=== PATIENT | male | born 1940 | race Caucasian/White ===

== ENCOUNTER 2017-12-01 08:50 | Day surgery (SDC) | payer OTHER ==
[2017-12-01] MEDS ORDERED: D5 LR 1000 ML 1,000 ML IV ONE (09:00)
[2017-12-01] MEDS: NORMODYNE INJ 20 MG VIAL ONE ×2 (09:30→09:35)
[2017-12-01] MEDS ORDERED: DIPRIVAN VIAL 10 ML ONE ×2 (10:09)
[2017-12-01 10:52] VITALS: BP 170/83
== END 2017-12-01 10:55 | disposition home or self-care (01) ==
LOC: SURG1 08:50
PROVIDERS: ATTEND Internal Medicine Gastroenterology
PROC: 0DJD8ZZ Inspection of Lower Intestinal Tract, Via Natural or Artificial Opening Endoscopic (ICD-10-PCS; principal; 2017-12-01 10:30)
PROC: 0DBK8ZX Excision of Ascending Colon, Via Natural or Artificial Opening Endoscopic, Diagnostic (ICD-10-PCS; principal; 2017-12-01 10:30)
DX: Z12.11 Encounter for screening for malignant neoplasm of colon (principal); R19.4 Change in bowel habit; K63.5 Polyp of colon; K64.0 First degree hemorrhoids
CPT/HCPCS: 99100; A4217; J3490; J7120